=== PATIENT | female | born 1975 | race Caucasian/White ===

== ENCOUNTER → 2016-08-03 | Outpatient (CLI) | payer OTHER ==
[2016-08-03 13:36] VITALS: BP 122/86; PULSE 115; RESP 18
--- NOTE | 2016-08-03 14:06 | P.CONS ---
History of Present Illness - Reason for Consult Consult date: 08/03/16 - Chief Complaint Lower back and legs pain - History of Present Illness This is a 41-year-old female with history of lower back pain with radiation to both legs down to the feet with numbness and tingling in no specific radicular distribution. This pain started about 7 or 8 years ago without any obvious precipitating event. The pain goes across her lower back and down her legs as mentioned above but the patient denies any bowel or bladder dysfunction or any weakness in the lower extremities. She denies any weight loss or any nocturnal pain. She had an MRI done on the lumbar spine which showed diffuse facet joint osteoarthropathy fairly severe at L4 5 and L5-S1 levels and degenerative disc disease at L4 5 and L5-S1. The patient has been on opioids for the last 5 years of her life including Garrison 10 mg 3-4 times a day. The patient was discharged from Dr. Colon office because she was taken also tramadol. The patient used to work at times is at right now she works in a factory on an assembly line and she complains of the intensity of her job. The patient was recently she lives with her mother and 2 grown up sons. Review of Systems All systems: negative Constitutional: Denies chills, Denies fever Past Medical History Past Medical History: Hyperlipidemia, Musculoskeletal Disorder, Osteoarthritis ( OA) History of Any Multi-Drug Resistant Organisms: None Reported Past Surgical History: Adenoidectomy, Tonsillectomy Past Anesthesia/Blood Transfusion Reactions: No Reported Reaction Past Psychological History: Anxiety Smoking Status: Current every day smoker Past Alcohol Use History: Rare Past Drug Use History: Marijuana, Opiates Additional Drug Use History / Comment(s): MARIJUANA - Past Family History Mother Family Medical History: AFIB, Hypertension Father Family Medical History: Diabetes Mellitus, Hypertension Medications and Allergies Home Medications Medication Instructions Recorded Confirmed Type High Cholesterol Pill 1 tab PO DAILY 08/03/16 History Methocarbamol [Robaxin] 1 tab PO TID PRN 08/03/16 08/03/16 History traMADol HCl [Ultram] 1 tab PO BID PRN 08/03/16 08/03/16 History Allergies Allergy/AdvReac Type Severity Reaction Status Date / Time No Known Allergies Allergy Verified 08/03/16 13:16 Physical Exam Vitals: Vital Signs Pulse Resp BP Pulse Ox 08/03/16 13:29 115 H 18 122/86 98 Intake and Output 08/02/16 08/03/16 08/03/16 22:59 06:59 14:59 Other: Weight 68.039 kg Patient Weight 08/04/16 06:59 Weight 68.039 kg The patient is alert oriented 3 no apparent distress. Lungs are clear to auscultation heart is regular no murmurs. Straight leg raising test negative bilaterally. Neuro exam of the lower extremities showed normal and symmetrical deep tendon reflexes and normal ankle flexion and extension bilaterally decreased knee extension bilaterally to 4 out of 5 and normal knee flexion bilaterally decreased hip flexion to 4 out of 5 bilaterally and symmetrically. Espinoza's test negative bilaterally Internal and external rotation of the hip joints did not elicit any hip pain The patient has normal range of motion of the lumbar spine. Assessment and Plan Plan: This is a 41-year-old female with lower back pain most likely due to lumbar spondylosis and degenerative disc disease especially at the L4 5 and L5-S1 levels. Her back pain is more intense than her legs pain the patient has been opiate dependent with the last 5 years of her life. The patient was told that she needs back surgery and Dr. Morel was going to do that for her however I do not think that she is a candidate for back surgery at this point. The patient' s pain may be treated by combination of physical therapy interventional pain procedures and weaning down of the opioids medications to be on non opioids over time. The patient may benefit from getting lumbar medial branch block and then RF ablation of the medial branches. Today I will give her prescription for Garrison 7.5 mg 3 times daily, and another one for next months but it will be at a dose of 5 mg 3 times a day. The patient understands our plan of weaning down the opioid medications at the same time doing intervention pain procedures to help decrease her pain.
== END | disposition home or self-care (01) ==
LOC: PNWHC3 13:09
PROVIDERS: ATTEND Anesthesiology
DX: M47.896 Other spondylosis, lumbar region (principal); M51.36 Other intervertebral disc degeneration, lumbar region; Z79.891 Long term (current) use of opiate analgesic; F11.20 Opioid dependence, uncomplicated; Z79.899 Other long term (current) drug therapy; F17.200 Nicotine dependence, unspecified, uncomplicated; E78.5 Hyperlipidemia, unspecified; M19.90 Unspecified osteoarthritis, unspecified site; M79.9 Soft tissue disorder, unspecified; F41.9 Anxiety disorder, unspecified
CPT/HCPCS: 99211

== ENCOUNTER 2016-09-22 09:45 | Day surgery (SDC) | payer OTHER ==
[2016-09-22 09:00] VITALS: TEMP 98
[~2016-09-22 09:45] MED LIST: LACTATED RINGERS 1,000 ML IV ONE; LACTATED RINGERS 1,000 ML IV SCH; LIDOCAINE 1% 20 ML VIAL (10MG/ML) FOR IV START INTRADERMA ONE; MIDAZOLAM 2 MG/2 ML VIAL ONE; TRIAMCINOLONE ACETONIDE 40 MG/ML 1 ML VIAL ONE; fentaNYL (PF) 50 MCG/ML 2 ML AMP ONE
--- NOTE | 2016-09-22 10:06 | P.PCN ---
Date of Procedure: 09/22/16 Procedure(s) Performed: PREOPERATIVE DIAGNOSIS : 1- Lumbar spondylosis with Facet Arthropathy without myelopathy . 2- Lumber degenerative disc disease POSTOPERATIVE DIAGNOSIS: 1- Lumbar spondylosis with Facet Arthropathy without myelopathy . 2- Lumber degenerative disc disease PROCEDURE: Diagnostic bilateral L3 -4 , L4 -5 , and L5-S1 medial branch block under fluoroscopy ANESTHESIA: Local with 1% lidocaine; IV sedation with Versed 2 mg and Fentanyl 100 mcg. EBL: Minimal COMPLICATION: None. IV FLUIDS: 100 mL of normal saline. PROCEDURE INDICATION: Chronic low back pain secondary to Facet arthropathy unresponsive to conservative treatment. PROCEDURE DESCRIPTION: the patient was seen and identified in the preop holding area , risks and benefits and possible complications of the procedure and alternative were discussed with the patient, and the patient agreed to proceed with the procedure and signed the consent IV was started and vital signs monitored during the procedure and fluoroscopy was used to maximize the benefit and accuracy of the needle placement, and sedation was given to decrease patient anxiety, patient was taken to the procedure room and placed in prone position vital signs monitored in the back prepped with chlorhexidine X3 then under strict sterile technique using a right oblique fluoroscopy ,the junction of the transverse process and the superior articulating process of the right L3- 4 , L4- 5, and L5-S1 vertebra which corresponding to the fluoroscopy image of the eye of the Jr dog on the block side for the medial branches and subsequently , after local infiltration of skin and subcu tissuies with lidocaine 1% one mL at each level ,then 22- gauge Quincke-type needles , 3 needle was used , each one of them placed at the junction of the base of the transverse process and the superior articular process at the appropriate level, and the needle was advanced until the periosteum contacted, needle placement confirmed with AP oblique and lateral view and after appropriate needle placement confirmed, and after negative aspiration for heme and CSF and there was no paresthesia 1-1/2 mL of Marcaine 0.5% mixed with 40 mg Kenalog , then half mL injected at each level after negative aspiration the needle subsequently removed and the same procedure repeated for the left side at left side at L3-4, L4- 5 and L5-S1 levels. At the end of the procedure and the needles removed and a bandage applied after the skin was cleaned the cleaning solution patient taken to recovery room in stable condition and monitors in the recovery room for 20-30 minutes and discharged home in stable condition after discharge criteria met and patient will follow up with the pain clinic in 2-4 weeks
[2016-09-22] MEDS ORDERED: IV FLUID CONTINUATION 1,000 ML IV ONE (10:14)
--- NOTE | 2016-09-22 10:19 | FL ---
EXAMINATION TYPE: FL guided pain mgmt statistic DATE OF EXAM: 09/22/2016 10:11 AM CLINICAL HISTORY: Low back pain. TECHNIQUE: Fluoroscopy. COMPARISON: None. FINDINGS: Fluoroscopic guidance was provided during pain relief procedure performed by Dr. Koenig . A total of 7 seconds of fluoroscopic time was utilized during the procedure and 4 spot images are acquired. Images acquired shows needle localization at several levels in the bilateral lumbar spine. IMPRESSION: As Above.
[2016-09-22 10:34] VITALS: RESP 16
[2016-09-22 10:35] VITALS: BP 100/70; PULSE 70
== END 2016-09-22 11:00 | disposition home or self-care (01) ==
LOC: ORPAIN 09:45
PROVIDERS: ATTEND Specialist
DX: G89.29 Other chronic pain (principal); M54.5 Low back pain; M47.816 Spondylosis without myelopathy or radiculopathy, lumbar region; M46.96 Unspecified inflammatory spondylopathy, lumbar region; M51.36 Other intervertebral disc degeneration, lumbar region
CPT/HCPCS: 81025; 64493; 64494; 64495; 99152; J2250; J3301; J3010

== ENCOUNTER 2016-10-28 09:42 | Day surgery (SDC) | payer OTHER ==
[~2016-10-28 09:42] MED LIST changes: -LACTATED RINGERS 1,000 ML IV ONE; -LIDOCAINE 1% 20 ML VIAL (10MG/ML) FOR IV START INTRADERMA ONE; -MIDAZOLAM 2 MG/2 ML VIAL ONE; -TRIAMCINOLONE ACETONIDE 40 MG/ML 1 ML VIAL ONE; -fentaNYL (PF) 50 MCG/ML 2 ML AMP ONE
[2016-10-28] MEDS ORDERED: LIDOCAINE 1% 20 ML VIAL (10MG/ML) FOR IV START INTRADERMA ONE (10:07)
[2016-10-28 10:08] VITALS: RESP 16; TEMP 98.1
[2016-10-28] MEDS ORDERED: TRIAMCINOLONE ACETONIDE 40 MG/ML 1 ML VIAL ONE (10:18)
[2016-10-28] MEDS ORDERED: fentaNYL (PF) 50 MCG/ML 2 ML AMP ONE (10:18)
[2016-10-28] MEDS ORDERED: MIDAZOLAM 2 MG/2 ML VIAL ONE (10:18)
[2016-10-28] MEDS ORDERED: BUPIVACAINE (PF) 0.5% 30 ML VIAL ONE (10:18)
--- NOTE | 2016-10-28 10:34 | P.PCN ---
Date of Procedure: 10/28/16 Surgeon: Juan Arteaga Pathology: none sent Condition: stable Disposition: PACU Description of Procedure: PREOPERATIVE DIAGNOSIS: L3-L4, L4-L5, and L5-S1 spondylosis without myelopathy and facet arthropathy. POSTOPERATIVE DIAGNOSIS: L3-L4, L4-L5, and L5-S1 spondylosis without myelopathy and facet arthropathy. PROCEDURE DESCRIPTION: Patient presents for L3, L4 and L5 diagnostic medial branch blocks #2 under fluoroscopic guidance. The procedure is performed using fluoroscopic guidance during needle placement to assure proper position and maximize safety. ANESTHESIA: Local with 1% lidocaine; conscious sedation EBL: Minimal PROCEDURE INDICATION: Patient with lumbar facet arthropathy signs and symptoms, here for diagnostic medial branch block. Pt does not take any blood thinning medications. 2 days' relief > 60% from first LMBB. PROCEDURE DESCRIPTION: The patient was seen and identified in the preoperative area. Risks, benefits, complications, and alternatives were discussed with the patient (including but not limited to incomplete pain relief, bleeding, infection, nerve damage, and allergies to medications), the patient agreed to proceed with the procedure and signed the consent after all questions were answered. Patient was taken to the OR and time out was completed to verify proper patient, position, laterality of pain, and allergies. Pt was placed in the prone position and a pillow was placed under the abdomen to reduce lumbar lordosis. The lumbosacral area was prepped and draped in the usual sterile fashion. Using oblique fluoroscopy, the eye of the "Jr dog" of right L4 vertebral body, which corresponds to the path of the medial branch originating from the level above, which is L3 in this case, was identified. Subsequently, a 22-gauge 3.5-inch spinal needle was inserted under fluoroscopic guidance toward the eye of the "Jr dog" of the right L4 vertebral body, corresponding to the junction of the superior articular process and the transverse process of the pedicle of the same level. After needle tip confirmation on lateral view and after negative aspiration for CSF and blood and without paresthesias, 1 mL of a 6 ml solution of 0.5% preservative-free bupivacaine and 40 mg Kenalog was injected. Subsequently the needle was withdrawn intact and the same procedure was repeated for the right L4, right L5, left L3, left L4, and left L5 medial branches which together with right L3 medial branch correspond to the sensory innervation of the bilateral L3-L4, L4-L5, and L5-S1 facet joints. Needle was withdrawn intact after each injection. At the end of the procedure, the skin was cleansed and bandages were applied. COMPLICATIONS: None. DISPOSITION/PLAN: The patient taken to the recovery area after the procedure in a stable condition for observation. Patient was reexamined prior to discharge and there were no issues. Patient was discharged home, accompanied by an adult, after meeting discharged criteria. Discharge instructions were give to the patient by the staff. Patient was specifically instructed not to drive today and to rest for the rest of the day. Patient will follow up for right lumbar RFA next visit if she has relief from this procedure.
[2016-10-28] MEDS ORDERED: IV FLUID CONTINUATION 1,000 ML IV ONE ×4 (10:44)
--- NOTE | 2016-10-28 10:54 | FL ---
Fluoroscopy HISTORY: Pain 8 seconds fluoroscopy time supplied to the referring clinician. 3 intraoperative C-arm images docume nt the procedure. See dictated report from anesthesia.
[2016-10-28 11:02] VITALS: BP 100/70; PULSE 85
== END 2016-10-28 11:31 | disposition home or self-care (01) ==
LOC: ORPAIN 09:42
PROVIDERS: ATTEND Anesthesiology
DX: G89.29 Other chronic pain (principal); M47.816 Spondylosis without myelopathy or radiculopathy, lumbar region; M47.817 Spondylosis without myelopathy or radiculopathy, lumbosacral region; M46.96 Unspecified inflammatory spondylopathy, lumbar region; M51.36 Other intervertebral disc degeneration, lumbar region; E78.5 Hyperlipidemia, unspecified; Z79.891 Long term (current) use of opiate analgesic; Z79.899 Other long term (current) drug therapy
CPT/HCPCS: 81025; 80307; 64493; 64494; 64495; 99152; J2250; J3301; J3010; 80346; 80349; 80364

== ENCOUNTER → 2016-11-23 | Outpatient (CLI) | payer OTHER ==
[2016-11-23 12:17] VITALS: BP 121/82; PULSE 90; RESP 18; TEMP 98.4
--- NOTE | 2016-11-23 12:37 | P.PN ---
Progress Note - Text Patient returns for followup for chronic back pain with mild radiation to lower extremities. Patient recently underwent bilateral lumbar MBB x 2, which provided some relief for 1 week's interval apiece. Patient continues on Munden medications for pain with good relief, but UDS was positive for THC at visit prior to procedure. Patient denies adverse drug effects from medications. Today, pt denies new-onset weakness, bowel/bladder incontinence, or any other signs or symptoms of cauda equina syndrome. There are no signs of acute intoxication, and no indications of medication diversion or overuse. In addition to above, 13-point review of systems is also negative for chest pain , shortness of breath, changes in vision, changes in hearing, new onset weakness , abdominal pain, diarrhea, extreme fatigue, malaise, fever, skin changes, homicidal or suicidal ideation, or bowel or bladder incontinence. Vital Signs: Reviewed in EMR Gen: WDWN, AAOx3, NAD HEENT: NCAT, EOMI, hearing grossly normal Pulm: resp unlabored Abd: soft, NT, ND Neck: supple, trachea midline ROM in flexion lumbar spine: reduced ROM in extension lumbar spine: reduced Lumbar paravertebral tenderness: + Facet loading: + bilateral SI joint tenderness: + LLE Espinoza's test: + LLE Straight leg raise: neg Neuro: CN II-XII grossly intact, muscle strength lower extremities PRESERVED Imaging: Reviewed in EMR Assessment: 1. lumbar spondylosis without myelopathy 2. SIJ dysfunction 3. chronic pain syndrome Plan: 1. Explanation: Opioid and psychological risk scores were reviewed. Diagnoses , prognoses, and multiple treatment options including but not limited to physical therapy, interventional therapies, adjuvant medical therapies, narcotic medication therapies, and surgery were discussed with the patient and all questions were answered to the patient's satisfaction. 2. Opioid agreement: no opioids prescribed today, patient + THC 3. Counseling: The patient was counseled extensively on SMOKING CESSATION, BODY MASS INDEX, EXERCISE. Specifically, the patient was instructed regarding the importance of smoking cessation, obesity, and exercise in the context of both chronic pain and overall health. 4. Procedures: Right then left lumbar RFA 5. Consultations: None 6. Investigations: None 7. Medications: none prescribed 8. Disposition: f/u for procedure as scheduled. I informed patient that we cannot prescribe any more opioids for her given her positive urine drug screen. She verbalized understanding. PQRS measures: 1-Patient's medications are documented in the chart. 2-Tobacco use is positive, counseling given 3-Patient has not had a pneumococcal vaccine. 4-Advanced care planning discussed, patient unable to give. 5-Opioid contract signed with the patient previously, but no more opioids to be given. 6-Pain positive, follow-up visit or procedure scheduled 7-Patient's blood pressure measured and documented, and WNL. 8-Patient's weight was measured, and body mass index ABOVE the normal limits, and counseling was done. Patient instructed to follow up with PCP. 9-Patient WAS NOT identified as an unhealthy alcohol user.
== END | disposition home or self-care (01) ==
LOC: PNWHC3 11:58
PROVIDERS: ATTEND Anesthesiology
DX: M47.816 Spondylosis without myelopathy or radiculopathy, lumbar region (principal); M53.3 Sacrococcygeal disorders, not elsewhere classified; G89.4 Chronic pain syndrome
CPT/HCPCS: 99211

== ENCOUNTER → 2017-10-18 | Outpatient (CLI) | payer OTHER ==
--- NOTE | 2017-10-18 09:00 | US ---
EXAMINATION TYPE: US transvaginal DATE OF EXAM: 10/18/2017 COMPARISON: NONE CLINICAL HISTORY: R19.09 Uterine mass,N93.9 ovarian. Pt states abnormal vaginal bleeding TECHNIQUE: Transvaginal (TV). Date of LMP: 10/17/2017 EXAM MEASUREMENTS: Uterus: 8.4 x 4.3 x 5.1 cm Endometrial Stripe: 0.4 cm Right Ovary: 2.6 x 1.4 x 3.3 cm Left Ovary: 6.7 x 5.5 x 6.6 cm 1. Uterus: Retroverted 2. Endometrium: Two small calcifications within endo 3. Right Ovary: wnl, follicles 4. Left Ovary: Large paraovarian cystic lesion measuring 5.8 x 4.3 x 5.5 cm 5. Bilateral Adnexa: wnl 6. Posterior cul-de-sac: wnl IMPRESSION: 1. Endometrial thickness is within normal limits. 2. Left simple appearing paraovarian cyst measuring 5.8 cm. Per consensus guidelines annual follow-up is recommended for premenopausal females in postmenopausal females for cysts of the size.
--- NOTE | 2017-10-18 09:48 | MM ---
Reason for exam: clinical finding. Baseline mammogram. Indicated problem(s): lump or thickening in the right breast. Physical Findings: Nurse Summary: 1.5cm nodule in the right breast at 10-11 o'clock (nurse birgit). MG Diagnostic Mammo w CAD SOO Bilateral CC and MLO view(s) were taken. The breast tissue is heterogeneously dense. This may lower the sensitivity of mammography. There are focal asymmetries of the left upper outer quadrant and left lower inner quadrant that appear as other fibroglandular tissue. Precautionary ultrasound will be performed. These results were verbally communicated with the patient and result sheet given to the patient on 10/18/17. ASSESSMENT: Incomplete: need additional imaging evaluation, BI-RAD 0 RECOMMENDATION: Ultrasound of both breasts.
--- NOTE | 2017-10-18 09:56 | USB ---
Reason for exam: additional evaluation requested from abnormal screening. US Breast BILAT Right breast ultrasound includes all four quadrants, the retroareolar region and axilla. Finding demonstrates no cystic or solid lesion seen. Left breast ultrasound includes all four quadrants, the retroareolar region and axilla. Finding demonstrates no cystic or solid lesion seen. No suspicious sonographic finding. These results were verbally communicated with the patient and result sheet given to the patient on 10/18/17. ASSESSMENT: Negative, BI-RAD 1 RECOMMENDATION: Routine screening mammogram of both breasts in 1 year.
== END | disposition home or self-care (01) ==
LOC: RADMAMWWP 07:37 → MERGE 07:40
PROVIDERS: ATTEND Family Medicine
DX: N63.10 Unspecified lump in the right breast, unspecified quadrant (principal); N63.20 Unspecified lump in the left breast, unspecified quadrant; N83.292 Other ovarian cyst, left side
CPT/HCPCS: 76830; 77066

== ENCOUNTER → 2019-10-15 | Outpatient (CLI) | payer OTHER | END | disposition home or self-care (01) | CPT/HCPCS: 36415; 80053; 80061; 84443; 85025; 86803; 87390 ==

== ENCOUNTER 2021-02-15 15:29 | Emergency (ER) | payer OTHER ==
[2021-02-15 15:36] VITALS: BP 112/75; PULSE 94; RESP 18; TEMP 98.5
[2021-02-15] MEDS ORDERED: BACITRACIN OINT 1 EACH PACKET TOPICAL ONE (15:56)
[2021-02-15] MEDS ORDERED: DIPH,PERTUS(ACELL)TETVAC-LF 0.5 ML VIAL IM ONE (16:00)
--- NOTE | 2021-02-15 16:00 | ED ---
Skin/Abscess/FB HPI - General Chief complaint: Skin/Abscess/Foreign Body Stated complaint: wounds on both arms Source: patient, RN notes reviewed, old records reviewed Mode of arrival: ambulatory Limitations: no limitations - History of Present Illness Initial comments: 45-year-old white female presents to the emergency room for clearance to go to drug rehab. Patient states that she is an IVDA heroin abuser and last use 7 days ago. She has open wounds to her right before meals and needs evaluation. In medical clearance. There is no exudate or erythema noted. There is no tenderness. Patient also states that her left axilla she had two abscesses, one that is draining since Tuesday and the other small bump she noticed today in shower. Patient denies any fevers, nausea, vomiting or diarrhea. She states that she last used 7 days ago and was treated at that time for heroin overdose. MD complaint: abscess/boil -: days(s) (7) Tetanus Up to Date: unsure Location: [facility] Severity scale (1-10): 6 Quality: aching Consistency: constant Improves with: none Worsens with: palpation Context: IVDA Associated symptoms: denies other symptoms Treatments Prior to Arrival: none - Related Data Home Medications Medication Instructions Recorded Confirmed Simvastatin [Zocor] 20 mg PO HS 10/28/16 12/31/16 clonazePAM [KlonoPIN] 5 mg PO BID 11/23/16 12/31/16 Sertraline [Zoloft] 25 mg PO DAILY 12/31/16 12/31/16 Previous Rx's Medication Instructions Recorded Sulfamethox-Tmp 800-160Mg [Bactrim 1 each PO Q12HR 7 Days #14 tab 02/15/21 Ds] Allergies Allergy/AdvReac Type Severity Reaction Status Date / Time No Known Allergies Allergy Verified 02/15/21 15:32 Review of Systems ROS Statement: Those systems with pertinent positive or pertinent negative responses have been documented in the HPI. ROS Other: All systems not noted in ROS Statement are negative. Past Medical History Past Medical History: Hyperlipidemia, Musculoskeletal Disorder, Osteoarthritis (OA) History of Any Multi-Drug Resistant Organisms: None Reported Past Surgical History: Adenoidectomy, Tonsillectomy Past Anesthesia/Blood Transfusion Reactions: No Reported Reaction Past Psychological History: Anxiety Smoking Status: Current every day smoker Past Alcohol Use History: Rare Past Drug Use History: Heroin, Marijuana, Opiates - Past Family History Mother Family Medical History: AFIB, Hypertension Father Family Medical History: Diabetes Mellitus, Hypertension General Exam Limitations: no limitations General appearance: alert, in no apparent distress Head exam: Present: atraumatic, normocephalic, normal inspection Eye exam: Present: normal appearance, PERRL, EOMI. Absent: scleral icterus, conjunctival injection, nystagmus, periorbital swelling, periorbital tenderness Pupils: Present: normal accommodation ENT exam: Present: mucous membranes dry Neck exam: Present: normal inspection, full ROM. Absent: tenderness, meningismus, lymphadenopathy, thyromegaly Respiratory exam: Present: normal lung sounds bilaterally. Absent: respiratory distress, wheezes, rales, rhonchi, stridor, chest wall tenderness, accessory muscle use, decreased breath sounds, prolonged expiratory Cardiovascular Exam: Present: regular rate, normal rhythm, normal heart sounds. Absent: systolic murmur, diastolic murmur, rubs, gallop, clicks, JVD GI/Abdominal exam: Present: soft, normal bowel sounds. Absent: distended, tenderness, guarding, rebound, rigid Extremities exam: Present: normal inspection, full ROM, normal capillary refill. Absent: tenderness, pedal edema, joint swelling, calf tenderness Left General: Present: other (.5cm draining since Tuesday; 1cm abscess indurated left axilla; non tender ) Shoulder Exam: Present: full ROM. Absent: tenderness Upper Arm exam: Present: full ROM. Absent: tenderness Elbow exam: Present: full ROM. Absent: tenderness Forearm Wrist exam: Present: full ROM. Absent: tenderness Hand Wrist exam: Present: full ROM. Absent: tenderness Vascular: Present: normal capillary refill, radial pulse Back exam: Present: normal inspection, full ROM. Absent: tenderness, CVA tenderness (R), CVA tenderness (L), muscle spasm, paraspinal tenderness, vertebral tenderness Neurological exam: Present: alert, oriented X3, CN II-XII intact Psychiatric exam: Present: normal affect, normal mood Skin exam: Present: warm, dry, intact, normal color. Absent: rash, cyanosis, diaphoretic, erythema, petechiae, pallor, mottled Course Vital Signs 02/15/21 15:33 Temperature 98.5 F Pulse Rate 94 Respiratory 18 Rate Blood Pressure 112/75 O2 Sat by Pulse 99 Oximetry Medical Decision Making - Medical Decision Making 45-year-old white female alert and oriented 4 presents to the emergency room for medical clearance to go to rehab. There is no exudate and lesions to the antecubital fossa and left axilla are dry and nonerythematous. These lesions are nontender and patient states had been draining since Tuesday. Patient is afebrile, no nausea vomiting or diarrhea. She will be directed to use warm moist compresses 3 times a day. The lesions on the right antecubital fossa, she'll be directed to use bacitracin dressings and keep covered. Patient will be prescribed Bactrim for MRSA coverage. He is discussed with Dr. Whitman Disposition Clinical Impression: Abscess Disposition: HOME SELF-CARE Condition: Fair Instructions (If sedation given, give patient instructions): Abscess (ED) Additional Instructions: Warm moist compresses to left axilla three times a day. Bacitracin dressings to the right arm and keep wounds covered. Take medication as prescribed Prescriptions: Sulfamethox-Tmp 800-160Mg [Bactrim Ds] 1 each PO Q12HR 7 Days #14 tab Is patient prescribed a controlled substance at d/c from ED?: No Referrals: Myron Karimi MD [Primary Care Provider] - 1-2 days Time of Disposition: 16:12
== END 2021-02-15 16:52 | disposition home or self-care (01) ==
LOC: EC 15:29
DX: L02.412 Cutaneous abscess of left axilla (principal); E78.5 Hyperlipidemia, unspecified; M19.90 Unspecified osteoarthritis, unspecified site; F17.200 Nicotine dependence, unspecified, uncomplicated; F12.90 Cannabis use, unspecified, uncomplicated; Z23 Encounter for immunization
CPT/HCPCS: 90471; 90715; 99283

== ENCOUNTER 2021-02-18 02:12 | Emergency (ER) | payer OTHER ==
[2021-02-18 02:18] VITALS: TEMP 98
--- NOTE | 2021-02-18 02:42 | ED ---
Overdose HPI - General Chief Complaint: Psychiatric Symptoms Stated Complaint: ETOH Time Seen by Provider: 02/18/21 02:15 Source: police, EMS, RN notes reviewed, old records reviewed Mode of arrival: EMS - History of Present Illness Initial Comments: This is a 45-year-old female DF for evaluation patient presents today for evaluation and patient presents with heroin overdose by PD. He does petition patient for psychiatric evaluation. Is significantly somnolent secondary to heroin use MD Complaint: intentional overdose -: hour(s) Intent: unwilling to say How Overdose Was Discovered: called family/friend, family/friend present at time, called 911 Context: Intentional Overdose: drug/ETOH problems Context: Accidental Overdose: wanted to get high Associated Symptoms: depression Treatments Prior to Arrival: none - Related Data Home Medications Medication Instructions Recorded Confirmed Simvastatin [Zocor] 20 mg PO HS 10/28/16 12/31/16 clonazePAM [KlonoPIN] 5 mg PO BID 11/23/16 12/31/16 Sertraline [Zoloft] 25 mg PO DAILY 12/31/16 12/31/16 Previous Rx's Medication Instructions Recorded Sulfamethox-Tmp 800-160Mg [Bactrim 1 each PO Q12HR 7 Days #14 tab 02/15/21 Ds] Allergies Allergy/AdvReac Type Severity Reaction Status Date / Time No Known Allergies Allergy Verified 02/18/21 02:18 Review of Systems ROS Statement: Those systems with pertinent positive or pertinent negative responses have been documented in the HPI. ROS Other: All systems not noted in ROS Statement are negative. Past Medical History Past Medical History: Hyperlipidemia, Musculoskeletal Disorder, Osteoarthritis (OA) History of Any Multi-Drug Resistant Organisms: None Reported Past Surgical History: Adenoidectomy, Tonsillectomy Past Anesthesia/Blood Transfusion Reactions: No Reported Reaction Past Psychological History: Anxiety Smoking Status: Current every day smoker Past Alcohol Use History: Rare Past Drug Use History: Heroin, Marijuana, Opiates - Past Family History Mother Family Medical History: AFIB, Hypertension Father Family Medical History: Diabetes Mellitus, Hypertension General Exam General appearance: alert, in no apparent distress, anxious Head exam: Present: atraumatic, normocephalic, normal inspection Eye exam: Present: normal appearance, PERRL, EOMI. Absent: scleral icterus, conjunctival injection, periorbital swelling ENT exam: Present: normal exam, mucous membranes moist Neck exam: Present: normal inspection. Absent: tenderness, meningismus, lymphadenopathy Respiratory exam: Present: normal lung sounds bilaterally. Absent: respiratory distress, wheezes, rales, rhonchi, stridor Cardiovascular Exam: Present: normal rhythm, tachycardia, normal heart sounds. Absent: systolic murmur, diastolic murmur, rubs, gallop, clicks GI/Abdominal exam: Present: soft, normal bowel sounds. Absent: distended, tenderness, guarding, rebound, rigid Extremities exam: Present: normal inspection, full ROM, normal capillary refill. Absent: tenderness, pedal edema, joint swelling, calf tenderness Back exam: Present: normal inspection Neurological exam: Present: alert, oriented X3, CN II-XII intact Psychiatric exam: Present: normal affect, normal mood Skin exam: Present: warm, dry, intact, normal color. Absent: rash Course Vital Signs 02/18/21 02/18/21 02/18/21 02:13 02:30 02:31 Temperature 98.0 F Pulse Rate 130 H 118 H Pulse Rate [ 116 H Hiv Nurse ] Respiratory 16 14 Rate Blood Pressure 105/78 100/73 O2 Sat by Pulse 93 L 96 Oximetry 02/18/21 04:14 Temperature Pulse Rate 102 H Pulse Rate [ Hiv Nurse ] Respiratory 13 Rate Blood Pressure 89/66 O2 Sat by Pulse 100 Oximetry - Reevaluation(s) Reevaluation #1: 02/18/21 02:41 Medical record is reviewed 02/18/21 02:46 Medically clear for psychiatric evaluation 02/18/21 04:25 Patient was seen eval by psychiatry here in the ER Medical Decision Making - Medical Decision Making 35-year-old female DF for evaluation, heroin overdose that is improved. Patient was seen by psychiatry here in the ER she is not homicidal or suicidal and can be discharged home Disposition Clinical Impression: Drug overdose, Heroin overdose Disposition: HOME SELF-CARE Condition: Fair Instructions (If sedation given, give patient instructions): Opioid Use Disorder (ED) Is patient prescribed a controlled substance at d/c from ED?: No Referrals: Myron Karimi MD [Primary Care Provider] - 1-2 days
[2021-02-18] MEDS ORDERED: NALOXONE 0.4 MG/ML 1 ML VIAL IM STA (05:14)
[2021-02-18 06:27] VITALS: RESP 16
[2021-02-18 08:05] VITALS: BP 99/75; PULSE 70
== END 2021-02-18 08:04 | disposition home or self-care (01) ==
LOC: EC 02:12
DX: T40.1X1A Poisoning by heroin, accidental (unintentional), initial encounter (principal); E78.5 Hyperlipidemia, unspecified; M19.90 Unspecified osteoarthritis, unspecified site; F41.9 Anxiety disorder, unspecified; F17.200 Nicotine dependence, unspecified, uncomplicated; F12.90 Cannabis use, unspecified, uncomplicated; F11.90 Opioid use, unspecified, uncomplicated
CPT/HCPCS: 99284; 96372; J2310

== ENCOUNTER 2022-01-02 23:35 | Emergency (ER) | payer OTHER ==
[2022-01-02 23:48] VITALS: RESP 18
--- NOTE | 2022-01-03 00:01 | ED ---
Overdose HPI - General Chief Complaint: Overdose Stated Complaint: Overdose Time Seen by Provider: 01/02/22 23:37 Source: patient, EMS, RN notes reviewed, old records reviewed Mode of arrival: EMS Limitations: no limitations - History of Present Illness Initial Comments: This is a 46-year-old female to the ER today. Patient coming in over accidental overdose, OD due to drug injection. Opiate, heroin. Patient was revived with Narcan both prior to EMS arrival in with EMS arrival. Patient is not homicidal or suicidal MD Complaint: intentional overdose, accidental overdose -: minutes(s) Intent: unwilling to say How Overdose Was Discovered: family/friend present at time Context: Intentional Overdose: drug/ETOH problems Context: Accidental Overdose: wanted to get high Treatments Prior to Arrival: none - Related Data Home Medications Medication Instructions Recorded Confirmed Simvastatin [Zocor] 20 mg PO HS 10/28/16 12/31/16 clonazePAM [KlonoPIN] 5 mg PO BID 11/23/16 12/31/16 Sertraline [Zoloft] 25 mg PO DAILY 12/31/16 12/31/16 Previous Rx's Medication Instructions Recorded Sulfamethox-Tmp 800-160Mg [Bactrim 1 each PO Q12HR 7 Days #14 tab 02/15/21 Ds] Allergies Allergy/AdvReac Type Severity Reaction Status Date / Time No Known Allergies Allergy Verified 02/18/21 02:18 Review of Systems ROS Statement: Those systems with pertinent positive or pertinent negative responses have been documented in the HPI. ROS Other: All systems not noted in ROS Statement are negative. Past Medical History Past Medical History: Hyperlipidemia, Musculoskeletal Disorder, Osteoarthritis (OA) History of Any Multi-Drug Resistant Organisms: None Reported Past Surgical History: Adenoidectomy, Tonsillectomy Past Anesthesia/Blood Transfusion Reactions: No Reported Reaction Past Psychological History: Anxiety Smoking Status: Current every day smoker Past Alcohol Use History: Rare Past Drug Use History: Heroin, Marijuana, Opiates - Past Family History Mother Family Medical History: AFIB, Hypertension Father Family Medical History: Diabetes Mellitus, Hypertension General Exam Limitations: no limitations General appearance: alert, in no apparent distress Head exam: Present: atraumatic, normocephalic, normal inspection Eye exam: Present: normal appearance, PERRL, EOMI. Absent: scleral icterus, conjunctival injection, periorbital swelling ENT exam: Present: normal exam, mucous membranes moist Neck exam: Present: normal inspection. Absent: tenderness, meningismus, lymphadenopathy Respiratory exam: Present: normal lung sounds bilaterally. Absent: respiratory distress, wheezes, rales, rhonchi, stridor Cardiovascular Exam: Present: regular rate, normal rhythm, normal heart sounds. Absent: systolic murmur, diastolic murmur, rubs, gallop, clicks GI/Abdominal exam: Present: soft, normal bowel sounds. Absent: distended, tenderness, guarding, rebound, rigid Extremities exam: Present: normal inspection, full ROM, normal capillary refill. Absent: tenderness, pedal edema, joint swelling, calf tenderness Back exam: Present: normal inspection Neurological exam: Present: alert, oriented X3, CN II-XII intact Psychiatric exam: Present: normal affect, normal mood Skin exam: Present: warm, dry, intact, normal color. Absent: rash Course Vital Signs 01/02/22 23:43 Temperature 98.3 F Respiratory 18 Rate Blood Pressure 116/80 - Reevaluation(s) Reevaluation #1: 01/03/22 00:00 Medical records reviewed Reevaluation #2: 01/03/22 00:00 Patient informed of results and questions are answered Reevaluation #3: 01/03/22 00:00 Patient continues to remain awake and alert not homicidal or suicidal Medical Decision Making - Medical Decision Making 46 female to the ER for evaluation. Patient presents today for evaluation in regards to overdose. Patient remains awake and alert throughout ER stay was referred with Narcan and can be discharged Disposition Clinical Impression: Accidental drug overdose Disposition: HOME SELF-CARE Condition: Fair Instructions (If sedation given, give patient instructions): Adult Overdose (ED) Is patient prescribed a controlled substance at d/c from ED?: No Referrals: Myron Karimi MD [Primary Care Provider] - 1-2 days
[2022-01-03 00:45] VITALS: BP 127/84; PULSE 97; TEMP 97.9
== END 2022-01-03 00:45 | disposition home or self-care (01) ==
LOC: EC 23:35
DX: T65.91XA Toxic effect of unspecified substance, accidental (unintentional), initial encounter (principal); E78.5 Hyperlipidemia, unspecified; F17.200 Nicotine dependence, unspecified, uncomplicated
CPT/HCPCS: 99284